=== PATIENT | male | born 1980 | race Caucasian/White ===

== ENCOUNTER 2016-07-29 15:07 | Emergency (ER) | payer BC ==
[2016-07-29 15:25] VITALS: BP 133/87; PULSE 56; RESP 16; TEMP 97.8; O2SAT 96
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
--- NOTE | 2016-07-29 15:55 | UCPHY ---
[id number]/11/17 15:14 HPI/ROS: CHIEF COMPLAINT: Left elbow injury HISTORY OF PRESENT ILLNESS: 36-year-old male presents to urgent care by private vehicle with injury to his left elbow. Patient states early this morning he was in the parking lot at work and when he got out of his truck he slipped on some ice and fell hitting his left elbow against the door frame. Right-hand dominant. Denies hitting her head or losing consciousness. Denies any other trauma or injury. Last tetanus shot was in 2012. ROS: Denies numbness or tingling in his fingers, pain in the left wrist or left shoulder. (Gilda Garcia) Past Medical/Surgical History: Hypertension, left shoulder surgery (Gilda Garcia) Social History: (Gilda Garcia) Physical Exam: On examination there is no obvious effusion noted to the left elbow. There is a very small superficial abrasion overlying the olecranon of the elbow. He has full flexion and full extension of the left elbow. Full pronation and supination. His left hand, left wrist and left shoulder are nontender. Normal sensation to light touch with normal 2 point discrimination. Strong radial pulse felt at the left wrist. (Gilda Garcia) Constitutional: Initial Vital Signs Temperature (C) 36.6 C 07/29/16 15:20 Heart Rate 56 L 07/29/16 15:20 Respiratory Rate 16 07/29/16 15:20 Blood Pressure 133/87 H 07/29/16 15:20 O2 Sat (%) 96 07/29/16 15:20 O2 Delivery Mode Room Air Allergies/Adverse Reactions: No Known Allergies Allergy (Verified 07/29/16 15:26) Home Medications: Medication Instructions Recorded Losartan Potassium 07/29/16 MDM/Departure - MDM Diagnostics: X-rays of the left elbow reveal no fractures. This is reviewed by myself the PAC system as well as by the radiologist. (Gilda Garcia) Procedures: Patient declined a sling. (Gilda Garcia) ED Course/Re-evaluation: 36-year-old male presents to urgent care by private vehicle with injury to left elbow. X-rays revealed no fractures. Patient declined a sling. He will do activities as tolerated. He was instructed to follow up with orthopedic surgery if continued to have pain a in 2-3 days. (Gilda Garcia) The patient was evaluated and managed by the physician bindery library technical assistant. I have reviewed this chart and I agree with the findings and plan of care as documented , as indicated by my signature. I am the secondary supervising physician. ( Marisa Dodd) - Depart Disposition: Home, Routine, Self-Care Clinical Impression: Superficial abrasion left elbow Contusion of left elbow Qualifiers: Encounter type: initial encounter Qualifier Code: (S50.02XA) Contusion of left elbow, initial encounter Condition: Good Instructions: Contusion in Adults (ED), Abrasion (ED), Acute Wound Care (ED) Additional Instructions: Your last tetanus shot was in 2012 per our records. Activity as tolerated. You have no fracture seen on your x-rays of your left elbow. You have a superficial abrasion to the left elbow. Watch for signs or symptoms of infection such as redness, swelling, increased pain, fever, purulent drainage and return if these develop. Referrals: César Rawls MD [Medical Doctor] - 2-3 days, call for appt. (Orthopedic surgeon on-call) - PQRS PQRS Measurement: Not applicable (Gilda Garcia)
== END 2016-07-29 16:10 | disposition home or self-care (01) ==
LOC: CED 15:07
DX: S50.02XA Contusion of left elbow, initial encounter (principal); S50.312A Abrasion of left elbow, initial encounter; W00.0XXA Fall on same level due to ice and snow, initial encounter; Y92.481 Parking lot as the place of occurrence of the external cause; V48.4XXA Person boarding or alighting a car injured in noncollision transport accident, initial encounter; Y99.8 Other external cause status; I10 Essential (primary) hypertension
CPT/HCPCS: 73080-PO; 99214-PO; G0463-PO

== ENCOUNTER 2018-01-05 22:01 | Emergency (ER) | payer BC ==
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
[2018-01-05] MEDS ORDERED: TDAP ADULT 0.5 ML INJ (BOOSTRIX) IM ONE (22:27)
[2018-01-05] MEDS ORDERED: IBUPROFEN 800 MG TAB PO ONE (22:27)
[2018-01-05] MEDS ORDERED: HYDROCOD/APAP 5/325 PREPACK#6 BTL TAKEHOME ONE (23:11)
[2018-01-05 23:28] VITALS: BP 136/84
== END 2018-01-05 23:26 | disposition home or self-care (01) ==
DX: S50.11XA Contusion of right forearm, initial encounter (principal); S70.11XA Contusion of right thigh, initial encounter; I10 Essential (primary) hypertension; Z23 Encounter for immunization; V18.2XXA Unspecified pedal cyclist injured in noncollision transport accident in nontraffic accident, initial encounter